=== PATIENT | female | born 1995 | race Two or more races ===

== ENCOUNTER 2018-03-14 | Emergency (ER) | payer OTHER ==
[~2018-03-14] VITALS: Ht 157.5 cm; Wt 68.0 kg
[2018-03-14 00:10] VITALS: BP 108/72
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
[2018-03-14 00:25] VITALS: BP 108/72
== END 2018-03-14 00:25 | disposition home or self-care (01) ==
LOC: EDBD → EMR 00:16
DX: F10.929 Alcohol use, unspecified with intoxication, unspecified (principal)
CPT/HCPCS: 99283